=== PATIENT | female | born 1960 | race Caucasian/White ===

== ENCOUNTER 2018-03-27 16:51 | Emergency (ER) | payer OTHER ==
[~2018-03-27] VITALS: Ht 172.7 cm; Wt 111.1 kg
[~2018-03-27 16:51] MED LIST: ALPR.5 PO; CELE200 PO; LEVSOD75 PO; METO50ER PO; PARO20 PO; TIZANIDINE HCL2 MG PO; ZOLP5 PO
[2018-03-27] MEDS ORDERED: TRAM50 PO (17:11)
[2018-03-27] MEDS ORDERED: ALPR.5 PO (17:12)
[2018-03-27] MEDS ORDERED: CELE200 PO (17:12)
[2018-03-27] MEDS ORDERED: LEVSOD75 PO (17:12)
[2018-03-27] MEDS ORDERED: TIZANIDINE HCL2 MG PO (17:12)
[2018-03-27] MEDS ORDERED: PARO20 PO (17:12)
[2018-03-27] MEDS ORDERED: DOXY100 PO (17:13)
[2018-03-27] MEDS ORDERED: VITAMIN D250000 UNIT PO (17:13)
[2018-03-27] MEDS ORDERED: METO50ER PO (17:13)
[2018-03-27] MEDS ORDERED: TRAZ50 PO (17:14)
[2018-03-27] MEDS ORDERED: Roxicodone5 MG PO (19:03)
== END 2018-03-27 19:21 | disposition home or self-care (01) ==
LOC: ER 16:51
DX: T84.021A Dislocation of internal left hip prosthesis, initial encounter (principal); Z88.5 Allergy status to narcotic agent; Z88.8 Allergy status to other drugs, medicaments and biological substances; Z88.6 Allergy status to analgesic agent; Z79.899 Other long term (current) drug therapy; Z87.891 Personal history of nicotine dependence; X50.1XXA Overexertion from prolonged static or awkward postures, initial encounter
CPT/HCPCS: 27265; 73501; 73502; 96361; 96374; 96375; 99152; 99283-25; J1170; J2405; J7030

== ENCOUNTER → 2018-09-02 | Outpatient (CLI) | payer OTHER ==
[~2018-09-02] MED LIST changes: +DOXY100 PO; +Roxicodone5 MG PO; +TRAM50 PO; +TRAZ50 PO; +VITAMIN D250000 UNIT PO
[2018-09-02 14:17] LABS: BASOPHILS ABSOLUTE AUTO 0.05 K/mm3 (0.00-0.23); BASOPHILS PERCENT AUTO 1 % (0-2); EOSINOPHILS ABSOLUTE AUTO 0.06 K/mm3 (0.00-0.68); EOSINOPHILS PERCENT AUTO 1 % (0-6); Hematocrit 41.5 % (33.0-51.0); Hemoglobin 14.3 g/dL (11.5-16.0); IMMATURE GRAN ABSOLUTE AUTO 0.01 K/mm3 (0.00-0.10); IMMATURE GRAN PERCENT AUTO 0 % (0-1); LYMPHOCYTES ABSOLUTE AUTO 1.61 K/mm3 (0.84-5.20); LYMPHOCYTES PERCENT AUTO 23 % (21-46); MONOCYTES ABSOLUTE AUTO 0.43 K/mm3 (0.16-1.47); MONOCYTES PERCENT AUTO 6 % (4-13); Mean Corpuscular HGB 31.7 pg (26.0-34.0); Mean Corpuscular HGB Conc 34.5 g/dL (31.5-36.5); Mean Corpuscular Volume 92 fL (80-100); Mean Platelet Volume 9.9 fL (9.1-12.4); NEUTROPHILS ABSOLUTE AUTO 4.87 K/mm3 (1.96-9.15); NEUTROPHILS PERCENT AUTO 69 % (41-73); Platelet Count 297 K/mm3 (150-400); RDW Coefficient Variation 12.7 % (11.7-14.2); RDW Standard Deviation 42.8 fL (35.1-46.3); Red Blood Cell Count 4.51 M/mm3 (3.80-5.20); White Blood Cell Count 7.03 K/mm3 (4.00-11.30)
[2018-09-02 14:38] LABS: Albumin, Blood 4.1 g/dL (3.4-5.0); Albumin/Globulin Ratio 1.2 (0.8-1.8); Bilirubin, Total 0.3 mg/dL (0.1-1.0); Bun/Creatinine Ratio 9.8 (12.0-20.0); Calcium, Blood 9.2 mg/dL (8.5-10.1); Creatinine, Blood 1.23 mg/dL (0.40-1.00); Globulin, Blood 3.3 g/dL (2.2-4.0); Potassium, Blood 3.8 mmol/L (3.5-5.5); Thyroid Stimulating Hormone 1.51 uIU/mL (0.360-4.800); Total Protein, Blood 7.4 g/dL (6.4-8.2)
== END | disposition home or self-care (01) ==
LOC: LAB SHORT 14:14 → LAB EV 14:14
PROVIDERS: Family Medicine
DX: R53.83 Other fatigue (principal)
CPT/HCPCS: 80053; 84443; 85025

== ENCOUNTER 2019-05-28 16:33 | Emergency (ER) | payer OTHER ==
[~2019-05-28] VITALS: Ht 172.7 cm; Wt 113.4 kg
== END 2019-05-28 22:36 | disposition home or self-care (01) ==
LOC: ER 16:33
DX: T84.021A Dislocation of internal left hip prosthesis, initial encounter (principal); Z88.5 Allergy status to narcotic agent; Z88.8 Allergy status to other drugs, medicaments and biological substances; Z91.013 Allergy to seafood; Z87.891 Personal history of nicotine dependence
CPT/HCPCS: 27266; 73501; 73502; 96374-59; 99283-25; A9270; J1885; J2704; J3010; J7030

== ENCOUNTER → 2020-07-22 | Outpatient (CLI) | payer MEDICARE, OTHER, BC ==
[~2020-07-22] MED LIST changes: +OXYC5 PO
== END | disposition home or self-care (01) ==
LOC: LAB SHORT 12:26 → LAB 12:26
DX: L57.0 Actinic keratosis (principal); L82.1 Other seborrheic keratosis
CPT/HCPCS: 88305

== ENCOUNTER → 2020-12-16 | Outpatient (CLI) | payer MEDICARE, BC ==
[2020-12-16 17:31] LABS: Source, Urine Voided
[2020-12-16 19:07] LABS: Appearance, Urine Clear (Clear); Bilirubin, Urine Neg (Neg); Blood, Urine 2+ (Neg); Color, Urine Yellow (P-Yellow); Glucose Qualitative, Urine Neg (Neg); Ketones, Urine Neg (Neg); Leukocyte Esterase, Urine Neg (Neg); Nitrite, Urine Neg (Neg); Protein, Urine Neg (Neg); Specific Gravity, Urine 1.015 (1.003-1.022); Urobilinogen, Urine NORM (Normal)
[2020-12-16 19:56] LABS: Red Blood Cells, Urine 0-2 /hpf (0-2); White Blood Cells, Urine 0-2 /hpf (0-5)
[2020-12-16 19:57] LABS: Bacteria Rare /hpf; Squamous Epithelial Cells Few /hpf (Few)
== END | disposition home or self-care (01) ==
LOC: LAB 17:29 → LAB SHORT 17:29
PROVIDERS: Internal Medicine
DX: N18.31 Chronic kidney disease, stage 3a (principal)
CPT/HCPCS: 81001

== ENCOUNTER 2021-08-30 09:34 | Emergency (ER) | payer MEDICARE, BC ==
[~2021-08-30] VITALS: Ht 172.7 cm; Wt 115.7 kg
[2021-08-30] MEDS ORDERED: NEURONTIN300 MG PO (09:49)
[2021-08-30] MEDS ORDERED: ATOR10 PO (09:49)
[2021-08-30] MEDS ORDERED: Norco 10-325 T1 EACH PO (09:50)
== END 2021-08-30 13:01 | disposition home or self-care (01) ==
LOC: ER 09:34
DX: T84.021A Dislocation of internal left hip prosthesis, initial encounter (principal); I10 Essential (primary) hypertension; Z91.013 Allergy to seafood; Z88.5 Allergy status to narcotic agent; Z79.899 Other long term (current) drug therapy; Y83.8 Other surgical procedures as the cause of abnormal reaction of the patient, or of later complication, without mention of misadventure at the time of the procedure
CPT/HCPCS: 73501; 73502; J2704; J3010; J7030

== ENCOUNTER 2022-05-05 13:26 | Day surgery (SDC) | payer MEDICARE, BC ==
[~2022-05-05] VITALS: Ht 172.7 cm; Wt 116.3 kg
[~2022-05-05 13:26] MED LIST changes: +ATOR10 PO; +NEURONTIN300 MG PO; +Norco 10-325 T1 EACH PO
[2022-05-05] MEDS ORDERED: Cyclobenzaprine5 MG (14:03)
== END 2022-05-05 15:39 | disposition home or self-care (01) ==
LOC: ORSCSDS 13:26
PROVIDERS: Internal Medicine Gastroenterology
PROC: 0DBN8ZX Excision of Sigmoid Colon, Via Natural or Artificial Opening Endoscopic, Diagnostic (ICD-10-PCS; principal; 2022-05-05 15:00)
PROC: 0DBK8ZX Excision of Ascending Colon, Via Natural or Artificial Opening Endoscopic, Diagnostic (ICD-10-PCS; principal; 2022-05-05 15:00)
DX: Z12.11 Encounter for screening for malignant neoplasm of colon (principal); Z86.010 Personal history of colon polyps; D12.2 Benign neoplasm of ascending colon; D12.5 Benign neoplasm of sigmoid colon; R06.02 Shortness of breath; F32.A Depression, unspecified; F41.9 Anxiety disorder, unspecified; J44.9 Chronic obstructive pulmonary disease, unspecified; I12.9 Hypertensive chronic kidney disease with stage 1 through stage 4 chronic kidney disease, or unspecified chronic kidney disease; N18.30 Chronic kidney disease, stage 3 unspecified; G47.33 Obstructive sleep apnea (adult) (pediatric); E03.9 Hypothyroidism, unspecified; Z87.891 Personal history of nicotine dependence; Z79.899 Other long term (current) drug therapy
CPT/HCPCS: 88305; J0330; J0461; J1100; J1885; J2405; J2704; J7120; Q9968

== ENCOUNTER → 2024-07-09 | Outpatient (CLI) | payer OTHER ==
[~2024-07-09] MED LIST changes: +Cyclobenzaprine5 MG
[2024-07-10 12:34] LABS: Bacterial Vaginosis PCR Negative (NEGATIVE); Candida Group, PCR NOT DETECTED (NOT DETECT); Candida glabrata-krusei, PCR NOT DETECTED (NOT DETECT)
== END | disposition home or self-care (01) ==
LOC: LAB 15:21 → LAB SHORT 15:21
PROVIDERS: Advanced Practice Midwife
DX: N76.0 Acute vaginitis (principal)
CPT/HCPCS: 81515